=== PATIENT | male | born 1985 | race Caucasian/White ===

== ENCOUNTER 2016-05-14 21:20 | Emergency (ER) | payer SELFPAY ==
[2016-05-14 21:52] VITALS: BP 130/88; PULSE 102; O2SAT 99
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
[2016-05-14 22:32] LABS: BASOPHIL % 0.2 % (0.0-0.4); Granulocytes % 58.9 % (36.0-66.0); Mean Cell Volume 89.4 fl (78-100); Mean Corpuscular Hemoglobin 31.1 pg (26-32); Mean Platelet Volume 10.5 fl (6-9.5); Monocytes % 10.9 % (0.0-12.0); Platelet Count 170 K/mm3 (150-450); Red Blood Count 5.59 M/mm3 (4.1-5.6); Red Cell Distribution Width 13.7 % (11.5-14.0); White Blood Count 12.8 K/mm3 (4.0-10.5)
[2016-05-14 23:27] LABS: ALKALINE PHOSPHATASE 89 U/L (46-116); ANION GAP 12.9 MEQ/L (5-15); BILIRUBIN,TOTAL 1.2 mg/dL (0.2-1.0); BLOOD UREA NITROGEN 16 mg/dL (9-20); CHLORIDE 103 mEq/L (98-107); Carbon Dioxide 23.3 mEq/L (21-32); Glucose 91 MG/DL (70-110); Potassium 3.6 mEq/L (3.5-5.1); SGOT/AST 22 U/L (15-37); SGPT/ALT 30 U/L (12-78); SODIUM 136 mEq/L (136-145); Total Protein 7.3 gm/dL (6.4-8.2)
[2016-05-14 23:28] LABS: ACETAMINOPHEN < 2.0 ug/ml (10-30)
[2016-05-14 23:30] LABS: Collection Type CLEAN CATCH
[2016-05-14 23:31] LABS: Bacteria RARE /HPF (NEGATIVE); COMPLETE URINE MICROSCOPIC? YES; Epithelial Cells MODERATE /HPF (FEW); Mucus MANY /HPF (NEGATIVE); Ph 5.5 (5-6)
== END 2016-05-15 00:15 | disposition home or self-care (01) ==
LOC: ED 21:20
DX: R07.89 Other chest pain (principal); F41.9 Anxiety disorder, unspecified; L73.9 Follicular disorder, unspecified; Z72.0 Tobacco use
CPT/HCPCS: 36415; 80053; 80307; 80320; 81000; 83986; 84484; 85025; 99282; 99284; G0481

== ENCOUNTER 2024-06-28 14:23 | Emergency (ER) | payer OTHER ==
[2024-06-28 15:42] VITALS: TEMP 97.9
[2024-06-28] MEDS ORDERED: Zofran 4 MG/2 ML VIAL ONE (15:54)
[2024-06-28] MEDS ORDERED: Adacel Vial IM ONE (15:55)
[2024-06-28] MEDS ORDERED: Sodium Chloride 0.9% 1000 ML 1,000 ML ONE (15:55)
[2024-06-28] MEDS ORDERED: MORPHINE SULFATE 4 MG INJ ONE (15:55)
[2024-06-28] MEDS: Sodium Chloride 0.9% 1000 ML 1,000 ML IV STA (15:58)
[2024-06-28 16:00] LABS: Absolute Neutrophil Ct (ANC) 4.12 x10^3/uL (1.78-5.38); BASOPHIL % 0.2 % (0.2-1.2); Basophil (Absolute #) 0.01 x10^3/uL (0.01-0.08); Eosinophil (Absolute #) 0 x10^3/uL (0.04-0.54); Hematocrit 41.6 % (40.1-51.0); IMMATURE GRAN # 0.04 x10^3u/L (0.001-0.031); IMMATURE GRAN % 0.6 % (0.001-0.429); Lymphocyte (Absolute #) 1.49 x10^3/uL (1.32-3.57); Lymphocytes % 23.3 % (21.8-53.1); Mean Cell Volume 83.2 fL (79.0-92.2); Mean Corpuscular Hgb Concent. 33.7 g/dL (32.3-36.5); Mean Platelet Volume 10.3 fL (9.4-12.4); Monocyte (Absolute #) 0.73 x10^3/uL (0.30-0.82); Monocytes % 11.4 % (5.3-12.2); Neutrophil % 64.5 % (34.0-67.9); Platelet Count 175 x10^3/uL (163-337); White Blood Count 6.4 x10^3/uL (4.23-9.07)
[2024-06-28] MEDS: Zofran 4 MG/2 ML VIAL IV ONE (16:00)
[2024-06-28] MEDS: MORPHINE SULFATE 4 MG INJ IV ONE (16:01)
[2024-06-28] MEDS: Adacel Vial IM ONE (16:05)
[2024-06-28 16:18] LABS: ALBUMIN 4.6 g/dL (3.5-5.0); ANION GAP 16.2 MEQ/L (5-15); BILIRUBIN,TOTAL 0.6 mg/dL (0.2-1.3); Calcium 9.7 mg/dL (8.4-10.2); Creatinine 1 1.14 mg/dL (0.66-1.25); Potassium 3.8 mmol/L (3.5-5.1); Total Protein 7.2 g/dL (6.3-8.2)
[2024-06-28 16:38] LABS: Appearance Cloudy (Clear); Bacteria None Seen /HPF (None Seen); Bilirubin Negative (Negative); Blood Negative (Negative); Epithelial Cells None Seen /HPF (None Seen); Glucose, Urine Negative (Negative); Hyaline Casts NONE SEEN /LPF (0-2); Ketones Negative (Negative); Leukocyte Esterase Negative (Negative); Nitrite Negative (Negative); Ph 7.5 (4.6-8.0); Protein,Urine Dip Negative (Negative); RBC 0-2 /HPF (0-5); WBC 0-2 /HPF (0-5)
[2024-06-28 17:53] VITALS: RESP 14
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
[2024-06-28 19:20] VITALS: BP 140/38; PULSE 65
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
[2024-06-29 12:56] VITALS: O2SAT 96
== END 2024-06-28 20:05 | disposition home or self-care (01) ==
LOC: ED 14:23
DX: T76.11XA Adult physical abuse, suspected, initial encounter (principal); S40.022A Contusion of left upper arm, initial encounter; S40.021A Contusion of right upper arm, initial encounter; Y04.2XXA Assault by strike against or bumped into by another person, initial encounter; M79.672 Pain in left foot; M25.511 Pain in right shoulder; M25.512 Pain in left shoulder; M54.2 Cervicalgia; R51.9 Headache, unspecified; E78.5 Hyperlipidemia, unspecified; I10 Essential (primary) hypertension; Z72.0 Tobacco use; Z23 Encounter for immunization
CPT/HCPCS: 36415; 70450; 71101; 72125; 73030; 73630; 80053; 81001; 82550; 85025; 90471; 90715; 96361; 96374; 96375; 99284; 99285; J2270; J2405